=== PATIENT | male | born 1980 | race Caucasian/White ===

== ENCOUNTER 2021-06-10 18:11 | Emergency (ER) | payer BC, SELFPAY ==
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
[2021-06-10 18:51] VITALS: BP 121/80; PULSE 74; RESP 18; TEMP 36.6; O2SAT 99
[2021-06-10] MEDS: Ibuprofen 600 MG TAB PO (18:57)
[2021-06-10] MEDS: oxyCODONE 5 MG TAB PO ×2 (18:57→20:21)
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
[2021-06-10 20:21] VITALS: BP 116/71; PULSE 81; RESP 18; TEMP 37.6; O2SAT 98
== END 2021-06-10 20:50 | disposition home or self-care (01) ==
PROVIDERS: Emergency Provider Physician Assistant
DX: S42.021A Displaced fracture of shaft of right clavicle, initial encounter for closed fracture (principal); V18.0XXA Pedal cycle driver injured in noncollision transport accident in nontraffic accident, initial encounter
CPT/HCPCS: 99283; 73000